=== PATIENT | male | born 1990 | race African-American/Black ===

== ENCOUNTER 2017-01-31 03:19 | Emergency (ER) | payer OTHER ==
[~2017-01-31] VITALS: Ht 190.5 cm; Wt 70.5 kg
[2017-01-31 03:26] VITALS: Ht 190.5 cm; Wt 70.5 kg
--- NOTE | 2017-01-31 04:11 | ERD ---
ER Documentation Chief Complaint Date/Time DATE: 01/31/17 TIME: 04:09 Chief Complaint rt bottom tooth ache x2 days. states "wants medications to sleep" HPI This is a 27-year-old male who presents to the emergency room for evaluation of tooth pain. The patient states that his right bottom tooth has been hurting for the past 2 days and states that he is going to his dentist this morning. He states that his pain was severe and he came to the ER for evaluation. Denies any trauma to the tooth. ROS All systems reviewed and are negative except as per history of present illness. Allergies Allergies: Coded Allergies: No Known Drug Allergies (Verified Allergy, Unknown, 01/31/17) PMhx/Soc Medical and Surgical Hx: pt denies Medical Hx, pt denies Surgical Hx Hx Alcohol Use: Yes (OCCASIONALLY) Hx Substance Use: Yes (MARIJUANA, LAST USED YESTERDAY) Hx Tobacco Use: No Physical Exam Vitals Vital Signs Date Time Temp Pulse Resp B/P Pulse Ox O2 Delivery O2 Flow Rate FiO2 01/31/17 03:26 97.1 85 18 134/92 99 Physical Exam Const: No acute distress Head: Atraumatic Eyes: Normal Conjunctiva ENT: Or dentition with dental caries noted at tooth #32. Normal External Ears, Nose and Mouth. Neck: Full range of motion..~ No meningismus. Resp: Clear to auscultation bilaterally Cardio: Regular rate and rhythm, no murmurs Abd: Soft, non tender, non distended. Normal bowel sounds Skin: No petechiae or rashes Back: No midline or flank tenderness Ext: No cyanosis, or edema Neur: Awake and alert Psych: Normal Mood and Affect Procedures/MDM This 27-year-old male presents to the ER for evaluation of a toothache. The patient does have a dental caries at tooth #32. No signs of dental abscess at this time. This patient was given a p.o. [place] in the ER for pain and will be discharged home with a prescription for Penicillin VK and [place] for breakthrough pain. Departure Diagnosis: Primary Impression: Tooth disease Additional Impression: Toothache Condition: Stable LAURITA LUGO DO Jan 31, 2017 04:11
[2017-01-31] MEDS ORDERED: HYDR-906 PO (04:12)
[2017-01-31] MEDS ORDERED: PENI500T PO (04:12)
[2017-01-31] MEDS ORDERED: HYDROCODONE/APAP (10/325) TAB PO ONE (04:30)
== END 2017-01-31 04:25 | disposition home or self-care (01) ==
LOC: E/R 03:19
DX: K08.89 Other specified disorders of teeth and supporting structures (principal)
CPT/HCPCS: Z7502; Z7610; 99284